=== PATIENT | male | born 1980 | race Caucasian/White ===

== ENCOUNTER → 2017-05-26 | Outpatient (CLI) | payer BC ==
--- NOTE | 2017-05-26 10:18 | KCIC ---
Indication: Stroke, transient cerebral ischemia. Dizziness, episode of right eye vision loss a couple months ago. Technique: Study is dated May 26, 2017. MRI evaluation of the brain was performed using sagittal T1, axial FLAIR, axial T2, axial T1, axial gradient echo, coronal T2, and axial diffusion with ADC mapping sequences. There are no comparison studies available. Findings: The ventricles and sulci are within normal limits for age. 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 There is no restricted diffusion to suggest an acute infarct. There is no acute intracranial hemorrhage or extra-axial fluid collection. There is no mass effect or midline shift. Intracranial flow voids are preserved. Cervicomedullary junction is unremarkable. Pituitary and suprasellar region are unremarkable. There is minimal right maxillary mucosal thickening. There is nonspecific fluid in the optic sheaths, can be a finding of increased intracranial pressures although there are no additional imaging findings to suggest intracranial hypertension. IMPRESSION: 1. No acute intracranial findings. 2. 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 Electronically signed by: Gama Klein MD (05/26/2017 10:15 AM) [id number]
--- NOTE | 2017-05-26 16:06 | EEG ---
DATE OF SERVICE: 05/26/2017 EEG NUMBER: [id number]. OBJECTIVE: The patient is a 36-year-old male with history of stroke who has episodes of altered consciousness. DESCRIPTION: This is a digital study. Electrodes are placed according to the international 10-20 system. Bipolar and referential montages are available. Activation procedures typically include hyperventilation and intermittent photic stimulation. INTERPRETATION: The waking background consists of 9-10 Hz, 50-100 microvolt activity, symmetrically distributed over parietooccipital regions and reactive to eye opening. Hyperventilation and intermittent photic stimulation are noncontributory. Stage 1 sleep is achieved with normal electroencephalogram patterns. IMPRESSION: This electroencephalogram with the patient awake and asleep is within normal limits. There is no focal, paroxysmal or epileptiform activity. Thank you for letting us help with the patient's care. JOHNATHAN LEE MD DR: KAYLEIGH/liz JOB#: [id number] / [id number] [email or web address] GIBSON DR
== END | disposition home or self-care (01) ==
LOC: KCIC MRI 09:06
PROVIDERS: ATTEND Psychiatry & Neurology Neurology with Special Qualifications in Child Neurology
DX: I63.9 Cerebral infarction, unspecified (principal); H54.61 Unqualified visual loss, right eye, normal vision left eye; Z86.73 Personal history of transient ischemic attack (TIA), and cerebral infarction without residual deficits
CPT/HCPCS: 70551; 95816